=== PATIENT | female | born 1985 | race Two or more races ===

== ENCOUNTER 2018-07-22 23:37 | Emergency (ER) | payer OTHER ==
[~2018-07-22] VITALS: Ht 160 cm; Wt 63.5 kg
[2018-07-23] MEDS ORDERED: KETO10TA2 PO (05:32)
[2018-07-23] MEDS ORDERED: LEVSIN/SL0.125 MG SL (05:32)
== END 2018-07-23 05:38 | disposition home or self-care (01) ==
LOC: ER 23:37
DX: M94.0 Chondrocostal junction syndrome [Tietze] (principal)